=== PATIENT | female | born 1985 | race Caucasian/White ===

== ENCOUNTER 2016-09-21 17:58 | Emergency (ER) | payer MEDICAID, OTHER ==
[~2016-09-21] VITALS: Ht 165.1 cm; Wt 95.3 kg
[2016-09-21 18:43] LABS: BILIRUBIN,URINE NEGATIVE (NEGATIVE); KETONES,URINE NEGATIVE (NEGATIVE); LEUKOCYTE ESTERASE ,URINE NEGATIVE (NEGATIVE); NITRITE,URINE NEGATIVE (NEGATIVE); PH,URINE 5 (5-9); PROTEIN,URINE NEGATIVE (NEGATIVE); UROBILINOGEN,URINE NORMAL (NORMAL)
[2016-09-21] MEDS ORDERED: PROMETHAZINE 25 MG (PHENERGAN) TAB PO ONE (18:45)
--- NOTE | 2016-09-21 18:50 | ED Abdominal Pain ---
General Chief Complaint: -Female Stated Complaint: CONGESTION/NAUSEA/VOMITING/PREG UNK LMP Nursing Triage Note: Pt stated she had a postive OTC test yesterday. Reports intermittant nausea. Denies vaginal bleeding. States she is always in pain secondary to her fibromyalgia. Sepsis Screen: No Definite Risk Source of Information: Patient Exam Limitations: No Limitations History of Present Illness Time Seen By Provider: 18:25 Initial Comments here with report of nausea and vomiting for a couple days. Denies vaginal bleeding or pain. Reports that she found that she was yesterday by home test. Complains of allover pain but states this is typical due to her fibromyalgia. She does have Zofran but does not want to take that in due to concerns and states Phenergan usually does better. Also reports Zofran typically gets her headache. She does not know when her last menstrual period was. She is typically sexually active daily. She states it has been less frequent recently but she denies pain with activity. Denies dysuria or diarrhea. Does admit to constipation but states that chronic. Timing/Duration: 2-3 Days Severity/Quality: Mild, Cramping, Other (nausea and vomiting) Location: Generalized Abdomen Radiation: RLQ, LLQ Modifying Factors: Worsens With Eating, Improves With Resting Associated Symptoms: No Back Pain, No Chest Pain, No Fever/Chills, Fatigue, Nausea/Vomiting, No Weakness Allergies and Home Medications Allergies Coded Allergies: Penicillins (Verified Allergy, Unknown, 09/21/16) Sulfa (Sulfonamide Antibiotics) (Verified Allergy, Unknown, 09/21/16) adhesive tape (Verified Allergy, Unknown, 09/21/16) latex (Verified Allergy, Unknown, 09/21/16) Review of Systems Constitutional: see HPI, No chills, No fever EENTM: No Symptoms Reported Respiratory: No Symptoms Reported Cardiovascular: No Symptoms Reported Gastrointestinal: See HPI, Abdominal Pain, Constipated, Denies Diarrhea, Nausea , Denies Rectal Bleeding, Vomiting Genitourinary: Denies Frequency, Denies Pain Musculoskeletal: see HPI, muscle pain Skin: no symptoms reported Psychiatric/Neurological: See HPI All Other Systems Reviewed Negative Unless Noted: Yes Past Yovlsst-Jtewyl-Jtvcrn Hx Patient Social History Alcohol Use: Denies Use Recreational Drug Use: Yes (thc) Smoking Status: Current Everyday Smoker Recent Foreign Travel: No Contact w/Someone Who Travel: No Recent Infectious Disease Expo: No Surgeries HX Surgeries: Yes Surgeries: Section Respiratory Hx Respiratory Disorders: No Cardiovascular Hx Cardiac Disorders: No Neurological Hx Neurological Disorders: No Genitourinary Hx Genitourinary Disorders: No Gastrointestinal Hx Gastrointestinal Disorders: No Musculoskeletal Hx Musculoskeletal Disorders: Yes Musculoskeletal Disorders: Fibromyalgia Reviewed Nursing Assessment Reviewed/Agree w Nursing PMH: Yes Family Medical History Significant Family History: No Pertinent Family Hx Physical Exam Vital Signs VS - Last 72 Hours, by Label 09/21/16 18:36 Temp 97.5 Pulse 82 Resp 16 B/P (MAP) 142/106 Pulse Ox 98 O2 Delivery Room Air Capillary Refill : Less Than 3 Seconds General Appearance: WD/WN, no apparent distress HEENT: PERRL/EOMI, pharynx normal Neck: full range of motion, supple Respiratory: lungs clear, normal breath sounds Cardiovascular: regular rate, rhythm, no murmur Gastrointestinal: soft, No guarding, No rebound, tenderness (mild lower abdominal tenderness but seems to be intermittent) Extremities: non-tender, normal inspection Neurologic/Psychiatric: alert, oriented x 3 Skin: normal color, warm/dry Progress/Results/Core Measures Results/Orders Lab Results Laboratory Tests Test 09/21/16 18:30 09/21/16 18:51 Range/Units Urine Color YELLOW Urine Clarity CLEAR Urine pH 5 5-9 Urine Specific [place] 1.025 H 1.016-1.022 Urine Protein NEGATIVE NEGATIVE Urine Glucose (UA) NEGATIVE NEGATIVE Urine Ketones NEGATIVE NEGATIVE Urine Nitrite NEGATIVE NEGATIVE Urine Bilirubin NEGATIVE NEGATIVE Urine Urobilinogen NORMAL NORMAL MG/DL Urine Leukocyte Esterase NEGATIVE NEGATIVE Urine RBC (Auto) 1+ H NEGATIVE Urine RBC NONE /HPF Urine WBC NONE /HPF Urine Squamous Epithelial Cells 2-5 /HPF Urine Crystals NONE /LPF Urine Bacteria NEGATIVE /HPF Urine Casts NONE /LPF Urine Mucus NEGATIVE /LPF Urine Culture Indicated NO Urine Test POSITIVE NEGATIVE White Blood Count 9.9 4.3-11.0 10^3/uL Red Blood Count 4.82 4.35-5.85 10^6/uL Hemoglobin 14.3 11.5-16.0 G/DL Hematocrit 42 35-52 % Mean Corpuscular Volume 87 80-99 FL Mean Corpuscular Hemoglobin 30 25-34 PG Mean Corpuscular Hemoglobin Concent 34 32-36 G/DL Red Cell Distribution Width 12.5 10.0-14.5 % Platelet Count 286 130-400 10^3/uL Mean Platelet Volume 10.7 H 7.4-10.4 FL Neutrophils (%) (Auto) 51 42-75 % Lymphocytes (%) (Auto) 39 12-44 % Monocytes (%) (Auto) 6 0-12 % Eosinophils (%) (Auto) 4 0-10 % Basophils (%) (Auto) 0 0-10 % Neutrophils # (Auto) 5.0 1.8-7.8 X 10^3 Lymphocytes # (Auto) 3.8 1.0-4.0 X 10^3 Monocytes # (Auto) 0.6 0.0-1.0 X 10^3 Eosinophils # (Auto) 0.4 H 0.0-0.3 10^3/uL Basophils # (Auto) 0.0 0.0-0.1 10^3/uL Sodium Level 140 135-145 MMOL/L Potassium Level 3.8 3.6-5.0 MMOL/L Chloride Level 108 H 98-107 MMOL/L Carbon Dioxide Level 20 L 21-32 MMOL/L Anion Gap 12 5-14 MMOL/L Blood Urea Nitrogen 11 7-18 MG/DL Creatinine 0.65 0.60-1.30 MG/DL Estimat Glomerular Filtration Rate > 60 BUN/Creatinine Ratio 17 Glucose Level 83 70-105 MG/DL Calcium Level 9.9 8.5-10.1 MG/DL Total Bilirubin 0.3 0.1-1.0 MG/DL Aspartate Amino Transf (AST/SGOT) 24 5-34 U/L Alanine Aminotransferase (ALT/SGPT) 22 0-55 U/L Alkaline Phosphatase 65 40-136 U/L Total Protein 7.3 6.4-8.2 G/DL Albumin 4.2 3.2-4.5 G/DL Human Chorionic Gonadotropin, Quant 1527 H <5 MIU/ML My Orders Orders - SHORTY CALDERÓN MD Cbc With Automated Diff (09/21/16 18:42) Comprehensive Metabolic Panel (09/21/16 18:42) Hcg,Quantitative (09/21/16 18:42) Promethazine Tablet (Phenergan Tablet) (09/21/16 18:45) Antacid Suspension (Mylanta Suspension (09/21/16 19:45) Us Ob<14 Wks Sngle W/Transvag (09/21/16 19:41) Medications Given in ED Current Medications Medications Dose Ordered Sig/Renae Route Start Time Stop Time Status Last Admin Dose Admin Promethazine HCl 25 mg ONCE ONCE PO 09/21/16 18:45 09/21/16 18:46 DC 09/21/16 19:02 25 MG Vital Signs/I&O Vital Sign - Last 12Hours 09/21/16 18:36 Temp 97.5 Pulse 82 Resp 16 B/P (MAP) 142/106 Pulse Ox 98 O2 Delivery Room Air Blood Pressure Mean: 118 Progress Note : Progress Note seen and evaluated. Patient would prefer not to do IV. She will except lab draw. Labs, UA and UCG ordered. Phenergan 25 mg by mouth ordered. Monitor patient.patient complaining of heartburn. Mylanta 30 mL by mouth ordered. Ultrasound pelvis ordered due to need for determining intrauterine . 2037: Ultrasound results noted below. Discharged home with return precautions. Patient verbalize understanding instructions and agreement with plan. Diagnostic Imaging Diagonstic Imaging: Ultrasound Plain Films/CT/US/NM/MRI: pelvis Comments yolk sac of approximately 5 weeks noted without pole but likely to early for detection. Per preliminary read. Departure Impression Impression: Primary Impression: Qualified Codes: Z3A.01 - Less than 8 weeks gestation of Additional Impression: Nausea and vomiting during Disposition: HOME, SELF-CARE Condition: Stable Departure-Patient Inst. Decision time for Depature: 20:39 Referrals: NO,LOCAL PHYSICIAN (PCP/Family) Primary Care Physician Patient Instructions: Nausea and Vomiting of (DC) Add. Discharge Instructions: All discharge instructions reviewed with patient and/or family. Voiced understanding. clear liquid diet and light diet as needed for symptoms related to nausea and vomiting. You need to find [employer]. Call this week for appointment. You may take medications as directed. Return for worsening, fever , vomiting, weakness, breathing problems or other concerns as needed. Scripts Promethazine HCl (Promethazine Tablet) 25 Mg Tablet 25 MG PO Q8H Y for NAUSEA/VOMITING, #14 TAB 0 Refills Prov: SHORTY CALDERÓN MD 09/21/16 SHORTY CALDERÓN MD September 21, 2016 18:50
[2016-09-21 18:58] LABS: BASOPHILS % (AUTO) 0 % (0-10); EOSINOPHILS # (AUTO) 0.4 10^3/uL (0.0-0.3); EOSINOPHILS % (AUTO) 4 % (0-10); LYMPHOCYTES # (AUTO) 3.8 X 10^3 (1.0-4.0); LYMPHOCYTES % (AUTO) 39 % (12-44); MEAN CORPUSCULAR HEMOGLOBIN 30 PG (25-34); MEAN CORPUSCULAR HGB CONC 34 G/DL (32-36); MEAN CORPUSCULAR VOLUME 87 FL (80-99); MEAN PLATELET VOLUME 10.7 FL (7.4-10.4); MONOCYTES # (AUTO) 0.6 X 10^3 (0.0-1.0); MONOCYTES % (AUTO) 6 % (0-12); NEUTROPHILS % (AUTO) 51 % (42-75); PLATELET COUNT 286 10^3/uL (130-400); RED BLOOD COUNT 4.82 10^6/uL (4.35-5.85); RED CELL DISTRIBUTION WIDTH 12.5 % (10.0-14.5); WHITE BLOOD COUNT 9.9 10^3/uL (4.3-11.0)
[2016-09-21 19:16] LABS: ALANINE AMINOTRANSFERASE 22 U/L (0-55); ALBUMIN 4.2 G/DL (3.2-4.5); ANION GAP 12 MMOL/L (5-14); ASPARTATE AMINO TRANSFERASE 24 U/L (5-34); BILIRUBIN,TOTAL 0.3 MG/DL (0.1-1.0); BLOOD UREA NITROGEN 11 MG/DL (7-18); BUN/CREATININE RATIO 17; CALCIUM 9.9 MG/DL (8.5-10.1); CARBON DIOXIDE 20 MMOL/L (21-32); CHLORIDE 108 MMOL/L (98-107); CREATININE SERUM 0.65 MG/DL (0.60-1.30); GFR ESTIMATED > 60; GLUCOSE 83 MG/DL (70-105); POTASSIUM 3.8 MMOL/L (3.6-5.0); SODIUM 140 MMOL/L (135-145); TOTAL PROTEIN 7.3 G/DL (6.4-8.2)
[2016-09-21] MEDS ORDERED: ANTACID SUSP 30 ML UDC (MYLANTA) PO ONE (19:45)
[2016-09-21] MEDS ORDERED: PROM25TA14 PO (20:42)
--- NOTE | 2016-09-21 20:45 | Diagnostic Imaging Report ---
INDICATION: Nausea. TECHNIQUE: Multiple real-time grayscale images were obtained of the pelvis in various projections both transabdominally and endovaginally. FINDINGS: The ovaries are not well-seen due to bowel gas. There is a small gestational sac. The mean sac diameter is 1.13 cm which correlates with a gestational age of 5 weeks 6 days. No pole or yolk sac is yet seen. There is no free pelvic fluid IMPRESSION: Findings suspect for early intrauterine gestation. A pole is not yet visualized. Recommend correlation with beta HCT and follow-up ultrasound, as warranted. Dictated by: Dictated on workstation # [id number]
[2016-09-21 20:49] VITALS: BP 140/94
== END 2016-09-21 20:49 | disposition home or self-care (01) ==
LOC: ER 18:01
DX: O21.0 Mild hyperemesis gravidarum (principal); M79.7 Fibromyalgia; O99.331 Smoking (tobacco) complicating pregnancy, first trimester; F17.210 Nicotine dependence, cigarettes, uncomplicated; Z3A.01 Less than 8 weeks gestation of pregnancy
CPT/HCPCS: 36415; 76801; 76817; 80053; 81000; 84702; 84703; 85025; 99282